=== PATIENT | female | born 1970 | race Caucasian/White ===

== ENCOUNTER 2016-11-30 18:20 | Inpatient (IN) | payer OTHER ==
[~2016-11-30] VITALS: Ht 154.9 cm; Wt 54.6 kg
[2016-12-01 00:20] LABS: BASOPHIL % 0.4 % (0-2); PLATELET COUNT 283 x10^3mcL (130-400)
[2016-12-01 00:21] LABS: RED CELL DISTRIBUTION WIDTH 14.9 % (11.5-14.5)
[2016-12-01] MEDS ORDERED: GENVOYA TABLET1 EACH PO (00:31)
[2016-12-01] MEDS ORDERED: GOOD NEIGHBOR P20 M2 PO (00:31)
[2016-12-01] MEDS ORDERED: VITAMIN D PO (00:31)
[2016-12-01] MEDS ORDERED: MULTI-VITAMINS1 TAB PO (00:31)
[2016-12-01] MEDS ORDERED: AMBIEN10 MG PO (00:31)
[2016-12-01] MEDS ORDERED: OXYCODONE HYDRO10 M1 PO (00:32)
[2016-12-01] MEDS ORDERED: BACLOFEN10 MG PO (00:32)
[2016-12-01] MEDS ORDERED: KEF500 PO (00:32)
[2016-12-01 00:33] LABS: CALCIUM 8.7 mg/dL (8.5-10.1); CARBON DIOXIDE 29.5 mmol/L (21-32); CHLORIDE SERUM 105 mmol/L (98-107); CREATININE SERUM 0.7 mg/dL (0.6-1.0); GFR1 > 60 mL/min; GLUCOSE SERUM 96 mg/dL (74-106); POTASSIUM SERUM 3.6 mmol/L (3.5-5.1); SODIUM SERUM 137 mmol/L (136-145)
[2016-12-01 00:37] LABS: ALKALINE PHOSPHATASE 200 U/L (46-116); ALT/SGPT 61 U/L (14-59); AMYLASE 41 U/L (25-115); AST/SGOT 37 U/L (15-37); BILIRUBIN TOTAL 0.2 mg/dL (0.20-1.00); TOTAL PROTEIN, SERUM 7.7 g/dL (6.4-8.2)
[2016-12-01 00:38] LABS: ALBUMIN 2.6 g/dL (3.4-5.0)
[2016-12-01 00:46] LABS: T3 TOTAL 1.31 ng/mL
[2016-12-01 00:56] LABS: FREE THYROXINE INDEX 2.7 ug/dL (1.4-4.5); T4(THYROXINE) 8.4 ug/dL (4.7-13.3)
[2016-12-01 01:07] VITALS: BP 125/71
[2016-12-01 05:05] LABS: UA SPECIFIC GRAVITY 1.015 (1.005-1.035); microscopic required? YES; urine erythrocyte TRACE (NEGATIVE)
[2016-12-01 05:37] VITALS: BP 114/66
[2016-12-01 06:19] LABS: BASOPHIL % 0.2 % (0-2); PLATELET COUNT 281 x10^3mcL (130-400)
[2016-12-01 06:26] LABS: RED CELL DISTRIBUTION WIDTH 14.7 % (11.5-14.5)
[2016-12-01 09:44] VITALS: BP 109/65
[2016-12-01 14:11] VITALS: BP 113/68
[2016-12-01 17:46] VITALS: BP 127/77
[2016-12-01 20:46] VITALS: BP 114/69
[2016-12-02 05:07] VITALS: BP 112/63
[2016-12-02 06:18] LABS: BASOPHIL % 0.1 % (0-2); PLATELET COUNT 295 x10^3mcL (130-400); RED CELL DISTRIBUTION WIDTH 14.4 % (11.5-14.5)
[2016-12-02 06:39] LABS: ALKALINE PHOSPHATASE 169 U/L (46-116); ALT/SGPT 47 U/L (14-59); AST/SGOT 23 U/L (15-37); BILIRUBIN TOTAL 0.2 mg/dL (0.20-1.00); CALCIUM 8.5 mg/dL (8.5-10.1); CARBON DIOXIDE 21.4 mmol/L (21-32); CHLORIDE SERUM 108 mmol/L (98-107); CREATININE SERUM 0.6 mg/dL (0.6-1.0); GFR1 > 60 mL/min; GLUCOSE SERUM 123 mg/dL (74-106); POTASSIUM SERUM 3.6 mmol/L (3.5-5.1); SODIUM SERUM 139 mmol/L (136-145); TOTAL PROTEIN, SERUM 6.6 g/dL (6.4-8.2)
[2016-12-02 06:40] LABS: ALBUMIN 2.2 g/dL (3.4-5.0)
[2016-12-02 09:35] VITALS: BP 118/79
[2016-12-02 13:07] VITALS: BP 116/64
[2016-12-02 17:30] VITALS: BP 137/69
[2016-12-02 20:44] VITALS: Ht 154.9 cm; Wt 54.6 kg
[2016-12-02 21:44] VITALS: BP 124/69
[2016-12-03 05:39] LABS: PLATELET COUNT 308 x10^3mcL (130-400)
[2016-12-03 05:46] LABS: BASOPHIL % 0 % (0-2); RED CELL DISTRIBUTION WIDTH 15.1 % (11.5-14.5)
[2016-12-03 05:50] LABS: CALCIUM 8.6 mg/dL (8.5-10.1); CHLORIDE SERUM 107 mmol/L (98-107); CREATININE SERUM 0.7 mg/dL (0.6-1.0); GFR1 > 60 mL/min; GLUCOSE SERUM 89 mg/dL (74-106); PHOSPHOROUS 2.8 mg/dL (2.5-4.9); POTASSIUM SERUM 3.6 mmol/L (3.5-5.1); SODIUM SERUM 138 mmol/L (136-145)
[2016-12-03 05:52] VITALS: BP 101/61
[2016-12-03 09:30] VITALS: BP 110/59
[2016-12-03 18:22] VITALS: BP 113/71
[2016-12-03 21:23] VITALS: BP 116/70
[2016-12-04 06:09] LABS: CALCIUM 8.7 mg/dL (8.5-10.1); CARBON DIOXIDE 25.9 mmol/L (21-32); CHLORIDE SERUM 106 mmol/L (98-107); CREATININE SERUM 0.7 mg/dL (0.6-1.0); GFR1 > 60 mL/min; GLUCOSE SERUM 86 mg/dL (74-106); POTASSIUM SERUM 3.2 mmol/L (3.5-5.1); SODIUM SERUM 139 mmol/L (136-145)
[2016-12-04 06:11] LABS: BASOPHIL % 0.4 % (0-2); PLATELET COUNT 293 x10^3mcL (130-400)
[2016-12-04 06:20] VITALS: BP 107/62
[2016-12-04 10:03] VITALS: BP 90/55
[2016-12-04 12:09] VITALS: BP 90/55
== END 2016-12-04 13:51 | disposition short-term general hospital (02) | DRG 344 ==
LOC: ED 18:20 → DU 23:51 → MU 12-02 09:31
PROVIDERS: Emergency Medicine; Family Medicine; ADMIT Family Medicine
DX: M46.26 Osteomyelitis of vertebra, lumbar region (principal); E43 Unspecified severe protein-calorie malnutrition; R74.0 Nonspecific elevation of levels of transaminase and lactic acid dehydrogenase [LDH]; Z68.22 Body mass index [BMI] 22.0-22.9, adult; R73.03 Prediabetes
CPT/HCPCS: 82962; 83880; 84439; 90658; J0696; J1100; J1170; J1885; J1956; J2270; J2405; J2800; J3370; J7030; Q0092